=== PATIENT | male | born 1970 | race Caucasian/White ===

== ENCOUNTER 2017-03-24 22:55 | Inpatient (IN) | payer OTHER ==
[~2017-03-24] VITALS: Ht 170.2 cm; Wt 84.0 kg
[2017-03-24 23:40] LABS: BASOPHIL % 0.4 % (0-2); PLATELET COUNT 323 x10^3mcL (130-400); RED CELL DISTRIBUTION WIDTH 12.3 % (11.5-14.5)
[2017-03-24 23:44] LABS: CARBON DIOXIDE 26.4 mmol/L (21-32); CHLORIDE SERUM 103 mmol/L (98-107); CREATININE SERUM 1.2 mg/dL (0.7-1.3); GFR1 > 60 mL/min; GLUCOSE SERUM 179 mg/dL (74-106); POTASSIUM SERUM 3.9 mmol/L (3.5-5.1); SODIUM SERUM 138 mmol/L (136-145)
[2017-03-24 23:49] LABS: ALBUMIN 3.7 g/dL (3.4-5.0); ALKALINE PHOSPHATASE 99 U/L (46-116); ALT/SGPT 33 U/L (16-63); AST/SGOT 18 U/L (15-37); BILIRUBIN TOTAL 0.6 mg/dL (0.20-1.00); TOTAL PROTEIN, SERUM 7.5 g/dL (6.4-8.2)
[2017-03-25] MEDS ORDERED: GLIPIZIDE10 M2 PO (01:18)
[2017-03-25] MEDS ORDERED: METFORMIN HYDR500 M1 PO (01:19)
[2017-03-25 02:06] VITALS: BP 121/84
[2017-03-25 02:11] VITALS: BP 121/84
[2017-03-25 03:28] VITALS: Ht 170.2 cm; Wt 84.0 kg
[2017-03-25 03:58] LABS: T3 TOTAL 1.22 ng/mL
[2017-03-25 04:19] LABS: AMYLASE 36 U/L (25-115); CHOLESTEROL 187 mg/dL (<200); LIPASE 166 IU/L (73-393); PHOSPHOROUS 3.7 mg/dL (2.5-4.9)
[2017-03-25 04:21] LABS: CHOLESTEROL/HDL RATIO 8.1; HDL CHOLESTEROL 23 mg/dL (40-60); TRIGLYCERIDES 548 mg/dL (<150)
[2017-03-25 04:32] LABS: FREE T4 1.12 ng/dL (0.76-1.46); FREE THYROXINE INDEX 3.3 ug/dL (1.4-4.5); T4(THYROXINE) 8.9 ug/dL (4.7-13.3)
[2017-03-25 05:49] VITALS: BP 114/70
[2017-03-25 14:08] VITALS: BP 110/72
[2017-03-25 17:09] LABS: microscopic required? NO
[2017-03-25 17:16] LABS: UA SPECIFIC GRAVITY >=1.030 (1.005-1.035); urine erythrocyte NEGATIVE (NEGATIVE)
[2017-03-25 17:25] VITALS: BP 121/75
[2017-03-25 17:33] LABS: AMPHETAMINE QUAL UR POSITIVE (NEG <=1000)
[2017-03-25 21:00] VITALS: BP 106/69
[2017-03-26 06:14] VITALS: BP 110/81
[2017-03-26 06:43] LABS: BASOPHIL % 0.4 % (0-2); PLATELET COUNT 249 x10^3mcL (130-400); RED CELL DISTRIBUTION WIDTH 12.8 % (11.5-14.5)
[2017-03-26 06:54] LABS: CALCIUM 8.3 mg/dL (8.5-10.1); CARBON DIOXIDE 28.3 mmol/L (21-32); CHLORIDE SERUM 104 mmol/L (98-107); CREATININE SERUM 0.9 mg/dL (0.7-1.3); GFR1 > 60 mL/min; GLUCOSE SERUM 89 mg/dL (74-106); MAGNESIUM 1.9 mg/dL (1.8-2.4); PHOSPHOROUS 4.6 mg/dL (2.5-4.9); SODIUM SERUM 138 mmol/L (136-145)
[2017-03-26 09:37] VITALS: BP 109/82
[2017-03-26 14:05] VITALS: BP 130/86
[2017-03-26 16:52] VITALS: BP 120/80
[2017-03-26 21:30] VITALS: BP 110/72
[2017-03-27 05:41] VITALS: BP 126/96
[2017-03-27 06:26] LABS: BASOPHIL % 0.1 % (0-2); PLATELET COUNT 253 x10^3mcL (130-400); RED CELL DISTRIBUTION WIDTH 12.8 % (11.5-14.5)
[2017-03-27 06:47] LABS: CALCIUM 8.8 mg/dL (8.5-10.1); CARBON DIOXIDE 28.6 mmol/L (21-32); CHLORIDE SERUM 103 mmol/L (98-107); GFR1 > 60 mL/min; GLUCOSE SERUM 96 mg/dL (74-106); PHOSPHOROUS 4.5 mg/dL (2.5-4.9); POTASSIUM SERUM 4.9 mmol/L (3.5-5.1); SODIUM SERUM 137 mmol/L (136-145)
[2017-03-27 09:44] VITALS: BP 138/96
[2017-03-27 13:53] VITALS: BP 129/87
[2017-03-27 16:49] VITALS: BP 135/83
[2017-03-27 21:20] VITALS: BP 120/76
[2017-03-28 05:29] VITALS: BP 123/76
[2017-03-28 06:53] LABS: CALCIUM 8.9 mg/dL (8.5-10.1); CHLORIDE SERUM 102 mmol/L (98-107); GFR1 > 60 mL/min; GLUCOSE SERUM 101 mg/dL (74-106); PHOSPHOROUS 3.6 mg/dL (2.5-4.9); POTASSIUM SERUM 4.3 mmol/L (3.5-5.1); SODIUM SERUM 138 mmol/L (136-145)
[2017-03-28 07:14] LABS: BASOPHIL % 0.4 % (0-2); PLATELET COUNT 276 x10^3mcL (130-400); RED CELL DISTRIBUTION WIDTH 12.4 % (11.5-14.5)
[2017-03-28] MEDS ORDERED: CLEOCIN HCL300 MG PO (07:27)
[2017-03-28] MEDS ORDERED: TRAMADOL HCL50 MG PO (07:29)
[2017-03-28] MEDS ORDERED: NEU300 PO (07:30)
[2017-03-28] MEDS ORDERED: LAC PO (07:32)
[2017-03-28] MEDS ORDERED: TRICOR48 M1 PO (07:40)
[2017-03-28] MEDS ORDERED: LOTRIMIN AF1% TOP (07:40)
[2017-03-28 10:06] VITALS: BP 136/69
[2017-03-28] MEDS ORDERED: ACCU-CHEK1 EAC2 MC (11:15)
[2017-03-28 11:57] VITALS: BP 136/69
[2017-03-28 13:15] VITALS: BP 135/80
== END 2017-03-28 15:29 | disposition home or self-care (01) | DRG 602 ==
LOC: ED 22:55 → DU 03-25 01:00 → MU 03-28 14:55
PROVIDERS: Emergency Medicine; Student in an Organized Health Care Education/Training Program; ADMIT Family Medicine Sports Medicine
DX: L03.115 Cellulitis of right lower limb (principal); N17.0 Acute kidney failure with tubular necrosis; D68.69 Other thrombophilia; E11.65 Type 2 diabetes mellitus with hyperglycemia; E11.42 Type 2 diabetes mellitus with diabetic polyneuropathy; B35.1 Tinea unguium; M20.42 Other hammer toe(s) (acquired), left foot; F15.10 Other stimulant abuse, uncomplicated; E78.1 Pure hyperglyceridemia; E66.3 Overweight; Z68.29 Body mass index [BMI] 29.0-29.9, adult; Z79.84 Long term (current) use of oral hypoglycemic drugs
CPT/HCPCS: 82962; 83880; 84439; 90658; J1170; J1200; J1644; J1885; J2543; J3370; J3490; J7030; J7050; Q0092

== ENCOUNTER 2017-04-21 18:55 | Emergency (ER) | payer OTHER ==
[~2017-04-21 18:55] MED LIST: ACCU-CHEK1 EAC2 MC; CLEOCIN HCL300 MG PO; GLIPIZIDE10 M2 PO; LAC PO; LOTRIMIN AF1% TOP; METFORMIN HYDR500 M1 PO; NEU300 PO; TRAMADOL HCL50 MG PO; TRICOR48 M1 PO
[2017-04-21 19:14] VITALS: BP 142/90
== END 2017-04-21 20:00 | disposition left against medical advice (07) ==
LOC: ED 18:55
DX: Z53.21 Procedure and treatment not carried out due to patient leaving prior to being seen by health care provider (principal)